=== PATIENT | female | born 1965 | race Hispanic/Latino ===

== ENCOUNTER 2017-06-29 16:28 | Emergency (ER) | payer MEDICAID, OTHER ==
--- NOTE | 2017-06-29 16:30 | ED PDOC ---
Arrival/HPI - General Time Seen by Provider: 06/29/17 16:29 Historian: Patient - History of Present Illness Narrative History of Present Illness (Text): 06/29/17 16:30 52 y/o female, allegic to steroid, psychiatric history including alcohol/drug abuse, post meopausal, c/o throat pain x 2 days. aching pain, aggravated by swallowing, no fever or chills, no chest pain or shortness of breath, no palpitation, no night sweat, no dizziness, no difficulty swallowing or speaking , no other medical or psychological complaints. Past Medical History - Provider Review Nursing Documentation Reviewed: Yes - Infectious Disease Hx of Infectious Diseases: None - Tetanus Immunization Tetanus Immunization: Unknown - Cardiac Hx Cardiac Disorders: No Hx Hypertension: No - Pulmonary Hx Respiratory Disorders: Yes Hx Asthma: Yes (Hx.) Hx Pneumonia: Yes (Hx.) - Neurological Hx Neurological Disorder: No Hx Seizures: No - HEENT Hx HEENT Disorder: No - Renal Hx Renal Disorder: No - Endocrine/Metabolic Hx Endocrine Disorders: No - Hematological/Oncological Hx Blood Disorders: Yes Hx Anemia: Yes - Integumentary Hx Dermatological Disorder: No - Musculoskeletal/Rheumatological Hx Musculoskeletal Disorders: Yes Hx Falls: No Hx Fractures: Yes (bilat wrist) - Gastrointestinal Hx Gastrointestinal Disorders: No - Genitourinary/Gynecological Hx Genitourinary Disorders: No Hx Sexually Transmitted Diseases: No - Psychiatric Hx Psychophysiologic Disorder: Yes Hx Substance Use: Yes (heroin inhalation, ETOH) - Surgical History Hx Appendectomy: Yes - Anesthesia Hx Anesthesia: Yes Hx Anesthesia Reactions: No Hx Malignant Hyperthermia: No - Suicidal Assessment Feels Threatened In Home Enviroment: No Family/Social History - Physician Review Nursing Documentation Reviewed: Yes Family/Social History: Unknown Family HX Smoking Status: Light Smoker < 10 Cigarettes Daily Hx Alcohol Use: Yes Hx Substance Use: Yes (heroin inhalation, ETOH) Allergies/Home Meds Allergies/Adverse Reactions: Allergies fluticasone propionate [From Advair Diskus] Allergy (Verified 06/15/16 05:17) SWELLING salmeterol xinafoate [From Advair Diskus] Allergy (Verified 06/15/16 05:17) SWELLING Home Medications: Home Meds Medication Instructions Recorded Confirmed Home Med [Home Med] 1 tab PO BID 06/29/17 06/29/17 traMADol [Ultram] 1 tab PO Q8H PRN 06/29/17 06/29/17 Review of Systems - Review of Systems Constitutional: absent: Fatigue, Fevers Eyes: absent: Vision Changes ENT: Sore Throat. absent: Hearing Changes Respiratory: absent: SOB, Cough Cardiovascular: absent: Chest Pain Gastrointestinal: absent: Abdominal Pain, Nausea, Vomiting Skin: absent: Rash, Pruritis Neurological: absent: Headache Physical Exam Vital Signs Reviewed: Yes Vital Signs Temp Pulse Resp BP Pulse Ox 06/29/17 16:43 98.5 F 80 18 129/82 96 Temperature: Afebrile Blood Pressure: Normal Pulse: Regular Respiratory Rate: Normal Appearance: Positive for: Well-Appearing, Non-Toxic, Comfortable Pain Distress: Mild Mental Status: Positive for: Alert and Oriented X 3 - Systems Exam Head: Present: Atraumatic, Normocephalic Pupils: Present: PERRL Extroacular Muscles: Present: EOMI Conjunctiva: Present: Normal Ears: Present: NORMAL TM, Normal Canal. No: Erythema Mouth: Present: Moist Mucous Membranes Pharnyx: Present: ERYTHEMA, EXUDATE (+lt. tonsillitis with mild exudate). No: Uvular Deviation, Muffled/Hoarse Voice, Strider, Soft Palate/Uvular Edema Neck: Present: Normal Range of Motion, Lymphadenopathy (+lt. anterior cervical) , Trachea Midline. No: Meningeal Signs, MIDLINE TENDERNESS, JVD Respiratory/Chest: Present: Clear to Auscultation, Good Air Exchange. No: Respiratory Distress, Accessory Muscle Use, Wheezes, Decreased Breath Sounds, Retracting, Rhonchi Cardiovascular: Present: Regular Rate and Rhythm, Normal S1, S2. No: Murmurs Abdomen: Present: Normal Bowel Sounds. No: Tenderness, Distention, Peritoneal Signs Back: Present: Normal Inspection Upper Extremity: Present: Normal Inspection. No: Cyanosis, Edema Lower Extremity: Present: Normal Inspection. No: Edema Neurological: Present: GCS=15, Speech Normal, Motor Func Grossly Intact, Gait Normal, Memory Normal Skin: Present: Warm, Dry, Normal Color. No: Rashes Lymphatic: Present: Cervical Adenopathy (+lt. anterior regional) Psychiatric: Present: Alert, Oriented x 3, Normal Insight, Normal Concentration Medical Decision Making ED Course and Treatment: 06/29/17 16:59 -Discharge home with motrin, augmentin, salt water gargling, soft food diet, stay hydrated, follow up with your own pmd and ENT within 2 days, return to the ER for any new or worsening signs or symptoms. - PA / TRACKWALKER / Resident Statement / has reviewed & agrees with the documentation as recorded. Disposition/Present on Arrival - Present on Arrival Any Indicators Present on Arrival: No History of DVT/PE: No History of Uncontrolled Diabetes: No Urinary Catheter: No History of Decub. Ulcer: No History Surgical Site Infection Following: None - Disposition Have Diagnosis and Disposition been Completed?: Yes Diagnosis: Tonsillitis with exudate Disposition: HOME/ ROUTINE Disposition Time: 17:00 Patient Plan: Discharge Condition: GOOD Additional Instructions: -Discharge home with motrin, augmentin, salt water gargling, soft food diet, stay hydrated, follow up with your own pmd and ENT within 2 days, return to the ER for any new or worsening signs or symptoms. Prescriptions: Amoxicillin/Clavulanate [Augmentin 875 MG-125 MG] 1 tab PO BID #20 tab Ibuprofen [Motrin Tab] 600 mg PO QID PRN #24 tab PRN Reason: Other Referrals: Rachna Matos MD [Primary Care Provider] - Follow up with primary Carlo Fajardo DO [Staff Provider] - Follow up with primary Forms: WORK NOTE
[2017-06-29 16:40] VITALS: BMI 19.8
[2017-06-29 16:43] VITALS: BP 129/82; PULSE 80; RESP 18; TEMP 98.5; O2SAT 96
== END 2017-06-29 17:14 | disposition home or self-care (01) ==
LOC: ED 16:28
DX: J03.90 Acute tonsillitis, unspecified (principal); F17.210 Nicotine dependence, cigarettes, uncomplicated

== ENCOUNTER 2017-08-17 14:20 | Emergency (ER) | payer MEDICAID ==
[2017-08-17 14:21] VITALS: BMI 19.8
--- NOTE | 2017-08-17 14:30 | ED PDOC ---
Arrival/HPI - General Time Seen by Provider: 08/17/17 14:29 Historian: Patient - History of Present Illness Narrative History of Present Illness (Text): 08/17/17 14:29 52 year old female, pmh including bilateral wrist and lt. hand 5th digit finger fracture, psychiatric history including drug abuse,post menopausal, allergic to advair diskus?, complaining of itching rash on the back with pain x 1 month with need a orthopedic doctor for follow up for her finger fracture that has been over 6 months. Pt. stated that she has itching on the back x 1 month, been itching and scratching on it. Pt. stated that she has chronic fracture which already healed on the lt. hand 5th digit, has splint at home and request for the orthopedic follow up. Pt. has no numbness or tingling, no rash , no night sweat, no dizziness, no palpitation, no diarrhea, no weight loss, no abdominal pain, no new injury or fall, no other medical or psychological complaints. Past Medical History - Provider Review Nursing Documentation Reviewed: Yes - Infectious Disease Hx of Infectious Diseases: None - Tetanus Immunization Tetanus Immunization: Unknown - Cardiac Hx Cardiac Disorders: No Hx Hypertension: No - Pulmonary Hx Respiratory Disorders: Yes Hx Asthma: Yes (Hx.) Hx Pneumonia: Yes (Hx.) - Neurological Hx Neurological Disorder: No Hx Seizures: No - HEENT Hx HEENT Disorder: No - Renal Hx Renal Disorder: No - Endocrine/Metabolic Hx Endocrine Disorders: No - Hematological/Oncological Hx Blood Disorders: Yes Hx Anemia: Yes - Integumentary Hx Dermatological Disorder: No - Musculoskeletal/Rheumatological Hx Musculoskeletal Disorders: Yes Hx Falls: No Hx Fractures: Yes (bilat wrist) - Gastrointestinal Hx Gastrointestinal Disorders: No - Genitourinary/Gynecological Hx Genitourinary Disorders: No Hx Sexually Transmitted Diseases: No - Psychiatric Hx Psychophysiologic Disorder: Yes Hx Substance Use: Yes (heroin inhalation, ETOH) - Surgical History Hx Appendectomy: Yes - Anesthesia Hx Anesthesia: Yes Hx Anesthesia Reactions: No Hx Malignant Hyperthermia: No - Suicidal Assessment Feels Threatened In Home Enviroment: No Family/Social History - Physician Review Nursing Documentation Reviewed: Yes Family/Social History: Unknown Family HX Smoking Status: Light Smoker < 10 Cigarettes Daily Hx Alcohol Use: Yes Hx Substance Use: Yes (heroin inhalation, ETOH) Allergies/Home Meds Allergies/Adverse Reactions: Allergies fluticasone propionate [From Advair Diskus] Allergy (Verified 08/17/17 14:40) SWELLING salmeterol xinafoate [From Advair Diskus] Allergy (Verified 08/17/17 14:40) SWELLING Home Medications: Home Meds Medication Instructions Recorded Confirmed traMADol [Ultram] 1 tab PO Q8H PRN 06/29/17 08/17/17 Review of Systems - Review of Systems Constitutional: absent: Fatigue, Fevers Eyes: absent: Vision Changes ENT: absent: Hearing Changes Respiratory: absent: SOB, Cough Cardiovascular: absent: Chest Pain Gastrointestinal: absent: Abdominal Pain, Nausea, Vomiting Musculoskeletal: Arthralgias. absent: Back Pain, Myalgias Skin: Rash, Pruritis, Skin Lesions. absent: Laceration, Abscess, Ulcer, Cellulitis Neurological: absent: Headache, Dizziness Physical Exam Vital Signs Reviewed: Yes Vital Signs Temp Pulse Resp BP Pulse Ox 08/17/17 14:34 98.4 F 95 H 18 174/95 H 96 Temperature: Afebrile Blood Pressure: Hypertensive Pulse: Regular Respiratory Rate: Normal Appearance: Positive for: Well-Appearing, Non-Toxic, Comfortable Pain Distress: Mild Mental Status: Positive for: Alert and Oriented X 3 - Systems Exam Head: Present: Atraumatic, Normocephalic Pupils: Present: PERRL Extroacular Muscles: Present: EOMI Conjunctiva: Present: Normal Mouth: Present: Moist Mucous Membranes Neck: Present: Normal Range of Motion Respiratory/Chest: Present: Clear to Auscultation, Good Air Exchange. No: Respiratory Distress, Accessory Muscle Use Cardiovascular: Present: Regular Rate and Rhythm, Normal S1, S2. No: Murmurs Abdomen: Present: Normal Bowel Sounds. No: Tenderness, Distention, Peritoneal Signs Back: Present: Normal Inspection Upper Extremity: Present: Normal Inspection, Other (Bilateral upper extremities : no bony tenderness or swelling on the hand or wrist, no scaphoid tenderness, visible chronic flexion on the 5th digit, skin intact, no laceration or abrasion , FROM without limitation, sensation intact, motor 5/5, +radial pulse, capillary refill< 2 seconds, neurovascular intact. ). No: Cyanosis, Edema Lower Extremity: Present: Normal Inspection. No: Edema Neurological: Present: GCS=15, Speech Normal, Motor Func Grossly Intact, Gait Normal, Memory Normal Skin: Present: Warm, Dry, Rashes (visible healing scab rashes approx. 1cm diameter noted on the BILATERAL back region with no cellulitis or ulcers, no bullseye or target signs, no streaking or ulcers. ), Normal Color Psychiatric: Present: Alert, Oriented x 3, Normal Insight, Normal Concentration Medical Decision Making ED Course and Treatment: 08/17/17 14:48 -There is no new injury or fall, no increasing in pain or change in pain characteristic, clinically there is no bony tenderness or swelling, no emergent indicated for repeat xrays or radiology studies. -Toradol IM ordered for the pain as the patient request pain medication. -Discharge home with finger splint, clotrimazole, mobic, bactroban, follow up with your own pmd and orthopedic/hand/skin lifter bacon within 2 days, return to the Emergency room for any new or worsening signs or symptoms. - PA / TELE RN / Resident Statement / has reviewed & agrees with the documentation as recorded. Disposition/Present on Arrival - Present on Arrival Any Indicators Present on Arrival: No History of DVT/PE: No History of Uncontrolled Diabetes: No Urinary Catheter: No History of Decub. Ulcer: No History Surgical Site Infection Following: None - Disposition Have Diagnosis and Disposition been Completed?: Yes Diagnosis: Dermatitis, Arthralgia, Chronic pain Disposition: HOME/ ROUTINE Disposition Time: 14:51 Patient Plan: Discharge Condition: GOOD Prescriptions: Clotrimazole 1% Cream [Lotrimin 1% CREAM] 1 applic EXT BID #30 g Meloxicam [Mobic] 15 mg PO DAILY PRN #14 tablet PRN Reason: Other Mupirocin 2% Ointment [Bactroban Ointment] 1 appl TP BID #30 g Referrals: Rob Alexander MD [Staff Provider] - Follow up with primary Kiera Syed MD [Staff Provider] - Follow up with primary [facility] [place] [facility] [place] - Follow up with primary [facility] [place] [Outside] - Follow up with primary Forms: WORK NOTE
[2017-08-17 14:39] VITALS: TEMP 98.4
[2017-08-17 15:44] VITALS: BP 134/85; PULSE 72; RESP 16; O2SAT 98
== END 2017-08-17 15:15 | disposition home or self-care (01) ==
LOC: ED 14:20
DX: G89.29 Other chronic pain (principal); L30.9 Dermatitis, unspecified; M25.50 Pain in unspecified joint; F17.210 Nicotine dependence, cigarettes, uncomplicated
CPT/HCPCS: 96372; 99284; J1885